=== PATIENT | female | born 1990 | race Caucasian/White ===

== ENCOUNTER 2016-07-22 23:17 | Emergency (ER) | payer OTHER ==
[2016-07-22 23:20] VITALS: BP 138/89
== END 2016-07-22 23:42 | disposition home or self-care (01) ==
LOC: ED 23:17
DX: G47.00 Insomnia, unspecified (principal)

== ENCOUNTER 2016-08-05 02:49 | Emergency (ER) | payer OTHER ==
[~2016-08-05] VITALS: Ht 162.6 cm; Wt 54.4 kg
[2016-08-05 03:31] LABS: BASOPHIL % 0.6 % (0-2); PLATELET COUNT 203 x10^3mcL (130-400); RED CELL DISTRIBUTION WIDTH 11.5 % (11.5-14.5)
[2016-08-05 03:40] LABS: CARBON DIOXIDE 22.6 mmol/L (21-32); CHLORIDE SERUM 107 mmol/L (98-107); CREATININE SERUM 0.8 mg/dL (0.6-1.0); GFR1 > 60 mL/min; GLUCOSE SERUM 98 mg/dL (74-106); POTASSIUM SERUM 3.5 mmol/L (3.5-5.1); SODIUM SERUM 141 mmol/L (136-145)
[2016-08-05 03:52] LABS: ALBUMIN 3.9 g/dL (3.4-5.0); ALKALINE PHOSPHATASE 34 U/L (46-116); ALT/SGPT 38 U/L (14-59); AST/SGOT 27 U/L (15-37); BILIRUBIN TOTAL 0.39 mg/dL (0.20-1.00); TOTAL PROTEIN, SERUM 7.6 g/dL (6.4-8.2)
[2016-08-05 04:23] LABS: AMPHETAMINE QUAL UR NONE DETECTED (NEG <=1000)
[2016-08-05 05:11] VITALS: BP 133/86
== END 2016-08-05 05:11 | disposition home or self-care (01) ==
LOC: ED 02:49
PROVIDERS: Emergency Medicine
DX: F41.9 Anxiety disorder, unspecified (principal); G47.00 Insomnia, unspecified
CPT/HCPCS: 36415